=== PATIENT | male | born 1970 ===

== ENCOUNTER 2018-02-28 20:11 | Inpatient (IN) | payer MEDICAID ==
[2018-02-28 21:18] LABS: HEMOGLOBIN 13.5 g/dL (12.0-18.0); MEAN CELL VOLUME 92.6 fL (80.0-94.0); MEAN CORPUSCULAR HEMOGLOBIN 32.2 pg (27.0-31.0); MEAN CORPUSCULAR HGB CONC 34.8 g/dL (33.0-37.0); MEAN PLATELET VOLUME 8.4 fL (7.2-11.7); RBC 4.17 Mil/uL (4.40-5.90); RED CELL DISTRIBUTION WIDTH 12.7 % (11.5-14.5)
[2018-02-28 21:25] LABS: URINE BILIRUBIN NEGATIVE (NEGATIVE); URINE BLOOD NEGATIVE (NEGATIVE); URINE CLARITY Clear (Clear); URINE COLOR Yellow (YELLOW); URINE GLUCOSE (UA) NORMAL (Normal); URINE LEUKOCYTE ESTERASE NEG Leu/uL (Negative); URINE PROTEIN NEGATIVE (NEGATIVE); URINE UROBILINOGEN NORMAL mg/dL (0.2-1.0)
[2018-02-28 21:32] LABS: ALB/GLOB RATIO 1.4 (1.0-2.1); ALBUMIN 4.1 g/dL (3.5-5.0); BLOOD UREA NITROGEN 11 mg/dL (9-20); CALCIUM 9.3 mg/dl (8.6-10.4); GFR NON-AFRICAN AMERICAN > 60
[2018-02-28 21:33] LABS: ALT/SGPT 24 U/L (21-72); AST/SGOT 17 U/L (17-59)
[2018-02-28 21:40] LABS: BARBITURATES, UR NEGATIVE (NEGATIVE); BENZODIAZEPINES, UR NEGATIVE (NEGATIVE); PHENCYCLIDINE, UR NEGATIVE (NEGATIVE)
--- NOTE | 2018-02-28 21:46 | C.PDOC ---
History Of Present Illness 47yo male, presents to the emergency department, prescreened for detox from Heroin. No SI/HI. Pt reports no medical c/o Time Seen by Provider: 02/28/18 20:37 Chief Complaint (Nursing): Substance Abuse History Per: Patient History/Exam Limitations: no limitations Past Medical History Reviewed: Historical Data, Nursing Documentation, Vital Signs Vital Signs: Last Vital Signs Temp 98.3 F 02/28/18 20:33 Pulse 83 02/28/18 20:33 Resp 16 02/28/18 20:33 BP 130/73 02/28/18 20:33 Pulse Ox 96 02/28/18 20:33 Family History: States: No Known Family Hx - Social History Hx Alcohol Use: No Hx Substance Use: No - Immunization History Hx Tetanus Toxoid Vaccination: No Hx Influenza Vaccination: No Hx Pneumococcal Vaccination: No Review Of Systems Psych: Negative for: Psychosis, Suicidal ideation, Withdrawal Physical Exam - Physical Exam Appears: Non-toxic, No Acute Distress Skin: Warm, Dry, No Rash Head: Atraumatic Eye(s): bilateral: Normal Inspection Nose: Normal Oral Mucosa: Moist Lips: Normal Appearing Neck: Normal ROM Gastrointestinal/Abdominal: Soft, No Tenderness Extremity: Normal ROM, No Deformity Neurological/Psych: Oriented x3, Normal Speech Gait: Steady ED Course And Treatment - Laboratory Results Result Diagrams: 02/28/18 21:14 02/28/18 21:14 O2 Sat by Pulse Oximetry: 96 Pulse Ox Interpretation: Normal (RA) Progress Note: Pt is medically cleared for detox. Pt was screened by crisis counselor and admitted under Dr meraz. Pt remained stable in ED Disposition - Disposition Disposition: HOSPITALIZED Disposition Time: 23:02 Condition: STABLE Forms: [facility] (French) - Clinical Impression Clinical Impression: Opioid use disorder, severe, dependence - Scribe Statement The provider has reviewed the documentation as recorded by the Scribe (Mariza hebert) All medical record entries made by the Scribe were at my direction and personally dictated by me. I have reviewed the chart and agree that the record accurately reflects my personal performance of the history, physical exam, medical decision making, and the department course for this patient. I have also personally directed, reviewed, and agree with the discharge instructions and disposition.
[2018-02-28 21:50] LABS: OPIATES, UR POSITIVE (NEGATIVE)
--- NOTE | 2018-03-01 01:52 | PCM.BM ---
<Vanessa Sotelo - Last Filed: 03/01/18 01:51> Treatment Plan Problems - Problems identified on initial assessmt Ineffectice Coping Skills Date Initiated: 03/01/18 Time Initiated: 01:51 Assessment reference: NA Status: Active Treatment assets and liabiliti Patient Assests: ADL independent Patient Liabilities: substance abuse - Milieu Protocol Maintain good personal hygiene: daily Encourage regular showers, daily Remind patient to perform daily oral care, daily Assist patient to perform ADL's Maintain personal safety: every shift Educate patient to report safety concerns to staff, every shift Monitor environment for contraband/sharps Medication safety: Monitor for expected outcome, potential side effects: every shift, Assess barriers to learning: every shift, Assess readiness for medication education: every shift <Juan J Sibley - Last Filed: 03/01/18 23:31> - Diagnosis (1) Opioid use disorder, severe, dependence Status: Acute Interventions: 03/01/18 23:31 * Assess 7x/week regarding severity of withdrawal * Educate regarding risks, benefits, side effects and alternatives of medications * Use Motivational Interviewing for abstinence * Use CBT for relapse prevention * Medication management for withdrawal symptoms * Encourage medication assisted treatment * <Rosalie Rodríguez - Last Filed: 03/04/18 09:51> Family Contact Family involvement: Kylahy/SO not involved - Goals for Treatment Patient goals for treatment: Complete detox and transition to a [facility] inpatient rehab. Discharge/Continuing Care - Education Needs Education Needs: Patient Medication, Patient Diagnosis/Disease Process, Patient Coping Skills, Patient Anger Management skills, Patient Placement options, Patient Community resources - Discharge Discharge Criteria: No longer exhibiting s/s of withdrawal, Reduction of target symptoms Discharge to:: Substance Abuse Rehab - Treatment Team Participation Patient/Family/SO Statement: 03/04/18 09:51 "I definitely wanna go to the [employer]..." Discussed with Family/SO: No Was Patient/Family/SO present at Treatment Team Meeting: Yes
--- NOTE | 2018-03-01 14:10 | PCM.PSYCH ---
Addendum entered and electronically signed by Juan J Sibley MD 03/01/18 23:32: I attest that I have interviewed the pt and reviewed the chart and participated and agree with the following assessment and plan. Total duration: 33 minutes (corrected) Original Note: Initial Psychiatric Evaluation - Initial Psychiatric Evaluation Type of Admission: Voluntary Legal Status: Capacity Chief Complaint (in patient's own words): "I'm sick." History of Present Illness and Precipitating Events: Patient seen, chart reviewed, case discussed with care team. Mr. Foley is a single 47 year old homeless, jobless, male with depression comes [facility] time. He has 5 adult age children, 19-33 years old. He admits to snorting 10 bags of heroin daily since the age of 18; longest sobriety was 3 years. He's tried 4-5 detox programs before, and doesn't recall ever being in rehab. Admits to smoking cocaine, weekly EtOH. Denies marijuana, PCP, Xanax. Smokes 1.5 ppd. Denies current or ever SI/HI, hallucinations. He last used an hour before admission. PMH: denies FamHx: denies psychiatric and SA Psych: depression - never hospitalized, previously on Zoloft, Respiradol (Nov 2017) Dispo: requests short term rehab despite possibly benefitting from longer term care ED: BAL - <10, UDS + for opiates. Current Medications: Active Medications Generic Name Dose Route Start Last Admin Trade Name Freq PRN Reason Stop Dose Admin Al Hydrox/Mg Hydrox/Simethicone 30 ml 03/01/18 10:13 Maalox 30 Ml PO TID PRN Indigestion / Heartburn Clonidine HCl 0.1 mg 03/01/18 10:13 Catapres PO Q8 PRN COWS Score More or Equal to 5 Hydroxyzine HCl 50 mg 03/01/18 10:28 Atarax PO Q6H PRN Anxiety Loperamide HCl 2 mg 03/01/18 10:13 Imodium PO Q8 PRN Diarrhea Mirtazapine 15 mg 03/01/18 22:00 Remeron PO HS BENNY Nicotine 1 patch 03/01/18 10:30 03/01/18 10:51 Nicoderm Cq TD 1 patch DAILY BENNY Administration Ondansetron HCl 4 mg 03/01/18 10:13 Zofran Tab PO Q8 PRN Nausea/Vomiting Trazodone HCl 100 mg 03/01/18 22:00 Desyrel PO HS PRN Insomnia Past Psychiatric History - Past Psychiatric History Pertinent Medical Hx (Current Medical&Sleep Prob, Allergies): Allergies Allergy/AdvReac Type Severity Reaction Status Date / Time No Known Allergies Allergy Verified 02/28/18 20:35 No Known Home Med 02/28/18 Review of Systems - Neurological Neurological: absent: Numbness, Lack of Coordination, Paresthesias, Tingling - Psychiatric Psychiatric: Anhedonia, Depression. absent: Auditory Hallucinations, Confusion, Difficulty Concentrating, Hallucinations, Homicidal Ideation, Suicidal Ideation, Visual Hallucinations, Tactile Hallucinations Mental Status Examination - Personal Presentation Personal Presentation: Looks older than stated age - Affect Affect: Constricted - Motor Activity Motor Activity: Calm - Reliability in Providing Information Reliability in Providing Information: Fair - Speech Speech: Organized - Mood Mood: Neutral - Formal Thought Process Formal Thought Process: No Impairment - Cognitive Functions Orientation: Person, Place, Situation, Time Sensorium: Alert Attention/Concentration: Attentive Abstract Thinking: [place] Estimate of Intelligence: Average Judgement: Intact, as evidence by: Insight regarding need for hospitalization Memory: Recent intact, as evidence by: Ability to recall events of the day, Remote intact, as evidenced by: Ability to recall historical events - Risk Risk: Withdrawal, Diminished functioning DSM 5 DX - DSM 5 DSM 5 Diagnosis: Opioid use disorder - severe Opioid withdrawal - Recommended/Plan of Treatment Treatment Recommendations and Plan of Treatment: PRN Atarax. Started Mirtazapine Gabapentin for augmentation if needed. As needed medication All risks, benefits, and alternatives of the meds discussed, and the patient agreed and understood. Attend groups and activities Supportive therapy and psychoeducation MD for abstinence CBT for relapse prevention Encourage MAT Refer to rehab or IOP, and self-help groups Smoking cessation with MD, nicotine patch daily. 23 min - Smoking Cessation Smoking Cessation Initiated: Yes
[2018-03-01] MEDS ORDERED: Buprenorphine Hydrochloride 2 mg SL ONE ×3 (20:02→22:02)
[2018-03-02] MEDS: Buprenorphine Hydrochloride 2 mg SL SCH (09:26)
--- NOTE | 2018-03-02 15:12 | PCM.PYCHPN ---
Psychiatric Progress Note - Psychiatric Progress Note Patient seen today, length of contact: 16 min Patient Chief Complaint: "Too much anxiety" Problems Identified/Issues Discussed: The pt is seen, chart reviewed, case discussed with staff. The pt is compliant with medications and reports no side-effects. Symptoms are improving but needs more time to stabilize. He asked for Xanax b/c "it worked for my anxiety in the past" Risks discussed - adam and dennis started instead. Pt attends groups and activities. Support given, psycho-education provided. After care discussed. Medication Change: Yes (detox changes daily) Medical Record Reviewed: Yes Mental Status Examination - Cognitive Function Orientation: Person, Place, Situation, Time Memory: Intact Attention: WNL Concentration: Poor Association: WNL Fund of Knowledge: WNL - Mood Mood: Neutral - Affect Affect: Constricted - Speech Speech: Appropriate - Formal Thought Process Formal Thought Process: No Impairment - Suicidal Ideation Suicidal Ideation: No - Homicidal Ideation Homicidal Ideation: No Goal/Treatment Plan - Goal/Treatment Plan Need for Continued Stay: Discharge may exacerbated symptoms, Severe functional impairment Progress Toward Problem(s) and Goals/Treatment Plan: Continue medications Support and psychoeducation daily Attend groups and activities daily After care planning by ARTHUR
[2018-03-03] MEDS: Buprenorphine Hydrochloride 2 mg SL SCH (10:28)
--- NOTE | 2018-03-03 14:40 | PCM.PYCHPN ---
Psychiatric Progress Note - Psychiatric Progress Note Patient seen today, length of contact: 16 min Patient Chief Complaint: "So so" Problems Identified/Issues Discussed: The pt is seen, chart reviewed, case discussed with staff. Support and psychoeducation given, CBT and MO used briefly No new symptoms reported, improving slowly and needs more time No SEs from medications, risks discussed. After care discussed Seroquel added for insomnia Medication Change: Yes (detox changes daily) Medical Record Reviewed: Yes Mental Status Examination - Cognitive Function Orientation: Person, Place, Situation, Time Memory: Intact Attention: WNL Concentration: Poor Association: WNL Fund of Knowledge: WNL - Mood Mood: Neutral - Affect Affect: Constricted - Speech Speech: Appropriate - Formal Thought Process Formal Thought Process: No Impairment - Suicidal Ideation Suicidal Ideation: No - Homicidal Ideation Homicidal Ideation: No Goal/Treatment Plan - Goal/Treatment Plan Need for Continued Stay: Discharge may exacerbated symptoms, Severe functional impairment Progress Toward Problem(s) and Goals/Treatment Plan: Continue medications Support and psychoeducation daily Attend groups and activities daily After care planning by ARTHUR
[2018-03-04] MEDS: Buprenorphine Hydrochloride 2 mg SL SCH (10:10)
--- NOTE | 2018-03-04 15:11 | PCM.PYCHPN ---
Psychiatric Progress Note - Psychiatric Progress Note Patient seen today, length of contact: 16 min Patient Chief Complaint: I am still withdrawing.' Problems Identified/Issues Discussed: Patient seen and evaluated, chart reviewed and discussed with the nurse. Patient reports improvement in his mood than yesterday but still reports withdrawal symptoms including, cramps, nausea, anxiety and headaches. Patient reports depressed mood but denies any suicidal ideation or homicidal ideation. He denies any auditory or visual hallucinations. He is tolerating the withdrawal medications and denies any side effects. Supportive therapy and psychoeducation were given. Medication Change: Yes (detox changes daily) Medical Record Reviewed: Yes Mental Status Examination - Cognitive Function Orientation: Person, Place, Situation, Time Memory: Intact Attention: WNL Concentration: Poor Association: WNL Fund of Knowledge: WNL - Mood Mood: Neutral - Affect Affect: Constricted - Speech Speech: Appropriate - Formal Thought Process Formal Thought Process: No Impairment - Suicidal Ideation Suicidal Ideation: No - Homicidal Ideation Homicidal Ideation: No Goal/Treatment Plan - Goal/Treatment Plan Need for Continued Stay: Discharge may exacerbated symptoms, Severe functional impairment Progress Toward Problem(s) and Goals/Treatment Plan: Opioid use disorder - severe Opioid withdrawal PRN Atarax. Started Mirtazapine Gabapentin for augmentation if needed. As needed medication All risks, benefits, and alternatives of the meds discussed, and the patient agreed and understood. Attend groups and activities Supportive therapy and psychoeducation GA for abstinence CBT for relapse prevention Encourage MAT Refer to rehab or IOP, and self-help groups Smoking cessation with GA, nicotine patch daily. - Smoking Cessation Smoking Cessation Initiated: No
[2018-03-04] MEDS: Aluminum Hydroxide/Magnesium Hydroxide Susp (30 mL) PO PRN ×2 (16:21→22:05)
[2018-03-04 20:10] VITALS: O2SAT 98
--- NOTE | 2018-03-05 08:19 | PCM.PYCHDC ---
Mental Status Examination - Mental Status Examination Orientation: Person, Place, Situation, Time Memory: Intact Mood: Depressed Affect: Constricted Speech: Appropriate Attention: WNL Concentration: WNL Association: WNL Fund of Knowledge: WNL Formal Thought Process: No Impairment Suicidal Ideation: No Current Homicidal Ideation?: No Discharge Summary - Discharge Note Reason for Hospitalization: Opioid withdrawal Consultations:: List each consultation separately and include: 1. Reason for request. 2. Findings. 3. Follow-up Summary of Hospital Course include:: 1. Description of specific treatment plan utilized for patients during their course of treatmen. 2. Summarize the time- course for resolution of acute symptoms and/or regressed behaviors. 3. Describe issues identified and worked on during hospitalization. 4. Describe medication utilized. 5. Describe medical problems identified and treated. 6. Reassessment of suicide risk Summary of Hospital Course: The pt was admitted and started on treatment with psychotherapy, support, psychoeducation and medications. ND and CBT used. The pt attended groups and activities, as well as milieu therapy. All the risks and benefits of medications are discussed and the patient understood and agreed. The pt improved with the treatments provided. After care discussed with the patient. He went to [facility]. - Final Diagnosis (DSM 5) Condition upon Discharge: STABLE DSM 5: Opioid use disorder - severe Opioid withdrawal Disposition: REHAB FACILITY/REHAB UNIT Follow-up Treatment Plan: Continue below medications after discharge. Follow after care plan as discussed. Use relapse prevention skills Return to ER or call 911 if suicidal, homicidal or symptoms relapse. Stay away from stress, alcohol and drugs. See primary doctor regularly and get labs. Prescriptions/Medication Reconciliation: Escitalopram [Lexapro] 10 mg PO DAILY #30 tab Gabapentin [Neurontin] 300 mg PO BID #60 cap Mirtazapine [Remeron] 15 mg PO HS #30 tab QUEtiapine [Seroquel] 100 mg PO HS #30 tab traZODone [Desyrel] 100 mg PO HS #30 tab
[2018-03-05 08:35] VITALS: BP 128/84; PULSE 61; RESP 19; TEMP 98.2
[2018-03-05] MEDS: Buprenorphine Hydrochloride 2 mg SL SCH (09:37)
== END 2018-03-05 10:46 | disposition home or self-care (01) | DRG 754 ==
LOC: C.ER 20:11 → C.9E 23:03 → C.7D 03-01 00:01
PROC: GZ56ZZZ Individual Psychotherapy, Supportive (ICD-10-PCS; principal; 2018-02-28)
DX: F32.9 Major depressive disorder, single episode, unspecified (principal); F11.23 Opioid dependence with withdrawal; F14.90 Cocaine use, unspecified, uncomplicated; F17.210 Nicotine dependence, cigarettes, uncomplicated; Z59.0 Homelessness; F41.9 Anxiety disorder, unspecified